=== PATIENT | female | born 1990 | race Caucasian/White ===

== ENCOUNTER → 2019-06-10 | Outpatient (CLI) | payer BC, SELFPAY ==
[2019-06-11 20:21] LABS: HPV APTIMA, High Risk Negative (Negative)
== END | disposition home or self-care (01) ==
LOC: LABSPEC 13:10
PROVIDERS: Referring Provider Obstetrics & Gynecology; Visit Provider Obstetrics & Gynecology
DX: Z12.4 Encounter for screening for malignant neoplasm of cervix (principal)
CPT/HCPCS: 87624; 88175; G0145

== ENCOUNTER → 2020-04-27 15:41 | Outpatient (CLI) | payer BC, SELFPAY ==
[2015-07-29 15:09] VITALS: BMI 31.1
[2020-04-27 16:59] LABS: Absolute Lymphocyte Count 2.61 X10^3/uL (0.83-4.51); Absolute Neutrophil Count 7.1 X10^3/uL (2.0-7.7); Basophil# 0.04 X10^3/uL; Basophil% 0.4 % (0-1); Eosinophils% 0.9 % (0-5); Hematocrit 39.2 % (37-47); Hemoglobin 13.4 g/dL (12.0-15.0); Lymphocyte # 2.61 X10^3/ul (4.0); Lymphocyte % 24.3 % (19-41); Mean Corp Hgb Conc 34.2 g/dL (32-36); Mean Corpuscular Hgb 31.1 pg (27.0-32.0); Mean Platelet Vol. 10.1 fl (6.2-12.0); Monocyte# 0.84 X10^3/uL; Monocyte% 7.8 % (0-10); NRBC Flagged by Analyzer 0 % (0-5); Neutrophil # 7.13 X10^3/uL (2.7-7.7); Neutrophil % 66.2 % (47-70); Platelet Count 332 K/mm3 (150-450); RBC Distribution Width CV 11.9 % (11.6-14.6); RBC Distribution Width SD 39.8 fl (35.1-43.9); Red Blood Count 4.31 M/mm3 (4.2-5.4); White Blood Count 10.8 K/mm3 (4.4-11.0)
[2020-04-27 17:02] LABS: Color, Urine Yellow (Yellow); Glucose, Dipstick 100 mg/dl (Normal); Ketone-Dipstick 15 mg/dl (Negative); Leukocyte Esterase-Dipstick 25 /ul (Negative); Nitrite-Dipstick Negative (Negative); Occult Blood-Urine Negative /ul (Negative); Protein-Dipstick 15 mg/dl (Negative); Urine Bilirubin Dipstick Negative (Negative); Urine Clarity Sl. Cloudy (Clear); Urine Urobilinogen 1 mg/dl (Normal)
[2020-04-27 17:25] LABS: Amphetamine Urine VISTA NEGATIVE (<1000 ng/mL); Barbiturate Urine VISTA NEGATIVE (< 200 ng/mL); Benzodiazepine Urine VISTA NEGATIVE (< 200 ng/mL); Cocaine Urine VISTA NEGATIVE (< 300 ng/mL); Ecstacy Urine VISTA NEGATIVE (< 500 ng/mL); Methadone Urine VISTA NEGATIVE (< 300 ng/mL); PCP Urine VISTA NEGATIVE (< 25 ng/mL); THC Urine VISTA NEGATIVE (< 50 ng/mL); Vista UDS pH Range 5
[2020-04-27 17:45] LABS: Thyroid Stim Hormone (TSH) 4.26 uIU/mL (0.358-3.74)
[2020-04-27 18:53] LABS: AST(SGOT) 12 U/L (15-37); Alanine Aminotransfer ALT/SGPT 18 U/L (13-56); Albumin, Serum 3.9 g/dL (3.2-5.0); Alkaline Phosphatase 56 U/L (45-117); Anion Gap 9 (5-15); BUN 13 mg/dL (7-18); BUN/Creat Ratio 20.1 RATIO (10-20); Chloride 104 mmol/L (98-107); Creatinine, Serum 0.65 mg/dL (0.55-1.02); EST Glomerular Filtration Rate 113 mL/min (>60); Est Glom Filt Rate - Afr Amer 137 mL/min (>60); Glucose 81 mg/dL (74-106); Potassium 3.2 mmol/L (3.5-5.1); Protein, Total 7.9 g/dL (6.4-8.2); Sodium Level 137 mmol/L (136-145)
[2020-04-27 19:04] LABS: Hemoglobin A1c 5.1 % (3.8-5.6)
[2020-04-28 09:42] LABS: HIV - WCH Non-Reactive (Nonreactive); Hepatitis B Surface Antigen Non-Reactive (Nonreactive); Hepatitis C Antibody Non-Reactive (Nonreactive); Rubella IgG Reactive (Nonreactive)
[2020-04-29 01:27] LABS: Prenatal RPR NONREACTIVE (NONREACTIVE)
[2020-04-30 03:07] LABS: Chlamydia By Nucleic Acid AMP Negative (Negative)
[2020-04-30 08:39] LABS: Gonococcus By Nucleic Acid AMP Negative (Negative)
== END ==
PROVIDERS: Visit Provider Obstetrics & Gynecology
DX: Z32.01 Encounter for pregnancy test, result positive (principal)
CPT/HCPCS: 36415; 80053; 80307; 81002; 83036; 84443; 85025; 86703; 86762; 86803; 87340; 87491; 87591

== ENCOUNTER → 2020-06-24 09:11 | Outpatient (CLI) | payer BC, SELFPAY ==
[2015-07-29 15:09] VITALS: BMI 31.1
[2020-06-24 11:28] LABS: Free T3 2.3 pg/mL (2.18-3.98); T4 Free Direct 1.27 ng/dL (0.76-1.46); Thyroid Stim Hormone (TSH) 1.63 uIU/mL (0.358-3.74)
== END ==
PROVIDERS: Visit Provider Student in an Organized Health Care Education/Training Program
DX: Z34.82 Encounter for supervision of other normal pregnancy, second trimester (principal); E03.9 Hypothyroidism, unspecified
CPT/HCPCS: 36415; 84439; 84443; 84481

== ENCOUNTER → 2020-08-03 10:48 | Outpatient (CLI) | payer BC, SELFPAY ==
[2015-07-29 15:09] VITALS: BMI 31.1
[2020-08-03 13:56] LABS: T4 Free Direct 1.13 ng/dL (0.76-1.46)
== END ==
PROVIDERS: Visit Provider Student in an Organized Health Care Education/Training Program
DX: Z34.82 Encounter for supervision of other normal pregnancy, second trimester (principal); E03.9 Hypothyroidism, unspecified
CPT/HCPCS: 36415; 84439; 84443

== ENCOUNTER → 2020-09-01 09:23 | Outpatient (CLI) | payer BC, SELFPAY ==
[2015-07-29 15:09] VITALS: BMI 31.1
[2020-09-01 10:24] LABS: Hematocrit 32.7 % (37-47); Hemoglobin 10.8 g/dL (12.0-15.0); Mean Corpuscular Hgb 31.1 pg (27.0-32.0); Mean Corpuscular Volume 94.2 fL (81-99); Mean Platelet Vol. 9.5 fl (6.2-12.0); Platelet Count 253 K/mm3 (150-450); RBC Distribution Width SD 44.8 fl (35.1-43.9); Red Blood Count 3.47 M/mm3 (4.2-5.4); White Blood Count 9.3 K/mm3 (4.4-11.0)
[2020-09-01 10:29] LABS: Glucose Challenge Gest 1H 50g 120 mg/dL (70-140)
[2020-09-01 15:03] LABS: Ferritin 6 ng/mL (8-252)
== END ==
PROVIDERS: Visit Provider Obstetrics & Gynecology
DX: Z34.82 Encounter for supervision of other normal pregnancy, second trimester (principal); D64.9 Anemia, unspecified
CPT/HCPCS: 36415; 82728; 82950; 85027

== ENCOUNTER → 2020-10-06 11:11 | Outpatient (CLI) | payer BC, SELFPAY ==
[2015-07-29 15:09] VITALS: BMI 31.1
== END ==
PROVIDERS: Visit Provider Obstetrics & Gynecology
DX: Z34.83 Encounter for supervision of other normal pregnancy, third trimester (principal)
CPT/HCPCS: 36415; 86850

== ENCOUNTER → 2020-11-19 | Outpatient (CLI) | payer BC, SELFPAY ==
[2015-07-29 15:09] VITALS: BMI 31.1
== END | disposition home or self-care (01) ==
LOC: LABSPEC 13:50
PROVIDERS: PCP Family Medicine; Visit Provider Obstetrics & Gynecology
DX: Z36.85 Encounter for antenatal screening for Streptococcus B (principal)
CPT/HCPCS: 87081

== ENCOUNTER 2020-12-19 23:05 | Inpatient (IN) | payer BC, SELFPAY ==
[2020-12-19] MEDS: Lactated Ringers 500 ML 999 ML IV (23:20)
[2020-12-19 23:33] VITALS: BP 128/67; PULSE 79; TEMP 37.1; O2SAT 98
[2020-12-19 23:33] LABS: Absolute Lymphocyte Count 2.46 X10^3/uL (0.83-4.51); Absolute Neutrophil Count 6.9 X10^3/uL (2.0-7.7); Basophil# 0.05 X10^3/uL; Basophil% 0.5 % (0-1); Eosinophil# 0.09 X10^3/uL; Eosinophils% 0.8 % (0-5); Hemoglobin 12.9 g/dL (12.0-15.0); Lymphocyte # 2.46 X10^3/ul (0.83-4.51); Lymphocyte % 22.8 % (19-41); Mean Corp Hgb Conc 33.9 g/dL (32-36); Mean Corpuscular Hgb 31.8 pg (27.0-32.0); Mean Corpuscular Volume 93.6 fL (81-99); Mean Platelet Vol. 9.8 fl (6.2-12.0); Monocyte# 0.88 X10^3/uL; Monocyte% 8.2 % (0-10); NRBC Flagged by Analyzer 0 % (0-5); Neutrophil # 6.88 X10^3/uL (2.7-7.7); Neutrophil % 63.7 % (47-70); Platelet Count 195 K/mm3 (150-450); RBC Distribution Width CV 13.3 % (11.6-14.6); RBC Distribution Width SD 45.4 fl (35.1-43.9); Red Blood Count 4.06 M/mm3 (4.2-5.4); White Blood Count 10.8 K/mm3 (4.4-11.0)
[2020-12-20] VITALS (19 sets, daily range): BP systolic 102–132; BP diastolic 55–70; PULSE 67–91; RESP 16–18; TEMP 36–36.9; O2SAT 97–98; BMI 37.0
[2020-12-20] MEDS: Oxytocin 30 units/NS 500 ml 30 UNITS/500 ML IV.SOLN 334 UNITS IV (00:07)
--- NOTE | 2020-12-20 00:18 | HP.PCM_ITS ---
History and Physical Date of Admission: 12/19/20 OG ANTEPARTUM RECORD - HISTORY AND PHYSICAL (12/20/2020) Name: PACO MEDINA History of this : This is a 30 year old [id number] presents at 40 wks + 3 days gestation in active labor. care was unremarkable except for a prior section. OB Physician: Ilana Esqueda MD 's Physician: UNDECIDED ...................................................................... : 1990 Age: 30 Address: [address] [place] [address] Phone: (H) [phone] (O) [phone] Insurance Carrier: [facility] [employer] (V[employer]D) [facility] [id number] Emergency Contact: JANE QUIROS - MOTHER [phone] ...................................................................... Final ALIVIA: 12/17/20 By Ultrasound: 10 weeks 4 days PARITY: (G-Total Pregnancies P-Fullterm,Premature,Induced AB,Spont AB, Ectopics, Multiple,Living) ALIVIA CONFIRMATION: By LMP: 03/12/20 Initial Exam: 12/17/20 By First Ultrasound Exam: 12/17/20 Final ALIVIA: 12/17/20 OB PROBLEM LIST: Hx- HSV, PPD, UTIs (distant past) Declines genetic testing. Plans second . ALLERGIC TO CLINDAMYCIN. Hx of PTD 35w Hypothyroidism- On Synthroid 100 mcg Marginal previa Rh Negative 28 wk RhoGAM ALLERGIES: Clindamycin Hives and/or rash clindamycin HCl Rash, trouble breathing NKDA MEDICATIONS: ferrous sulfate 325 mg (65 mg iron) tablet One pill by mouth twice a day levothyroxine 100 mcg tablet One pill by mouth once a day 28 mg-800 mcg tablet 1 PO QD Probiotic Plus and Cranberry 250 mg-30 mg-39.5 mg capsule 1 PO QD Vitamin C ER 500 mg tablet,extended release 1 PO BID Zofran 4 mg tablet As Directed 1 tab po TID PRN nausea and vomiting SOCIAL HISTORY: Smoking - Never Alcohol Use - None Diet - balanced Diet, caffeine < 2 drinks per day and water 3-4 Glasses Lifestyle - low stress lifestyle Exercise - minimal 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 Spouse-Sig Other Name - Harshil DomingoRory Jarad Spouse-Sig Other Occupation - [employer] Spouse-Sig Other Phone No - [phone] Children Name(s) - Donavon ()Nathaniel (16 SHM) PRIOR DELIVERY HISTORY DEL DATE GEST LAB WT LB WT OZ TYPE ANES LABOR TX Nov 27 39 17 9 0 C-Sec Epidural No 14 Jul 16 35 8 7 0 Vag Epidural No ANTEPARTUM FLOW CHART VISIT GE RTC FU F F WV U U DATE WK MD WKS HT PN HR M SS BP ED WT WV GL D EF ST __ ____ ___ __ __ ___ __ __ __ ___ __ __ __ ___ __ 01 Sep 39 SHM 1 39 V + + 120/68 sl 205 1+ ne 3 50 -3 25 Nov 38 SHM 1 39 V + + 130/70 1+ 206 tr - 18 Nov 37 SHM 1 38 V + + 120/60 1+ 204 1+ ne 3 50 -3 11 Nov 36 SHM 1 37 V + + 122/58 1+ 205 tr 2+ 06 Nov 36 SHM 1 36 V + + 100/62 0 204 - - 1 30 -3 Oct SHM 2 33 V + + 114/64 1+ 203 tr 1+ 06 Nov 13 SHM 2 31 V + + 110/58 1+ 199 - 1+ 23 Oct 12 SHM 3 28 + + 116/64 tr 195 tr 1+ September 06 SHM 4 23 ? + + 104/52 sl 187 tr - 20 Aug 03 CM 4 +U + 124/70 sl 181 - 2+ 10 Jun 27 JMW 5 14 + ? 122/64 0 177 - - 09 May 26 SHM 4 on US 124/78 0 174 tr - ANTEPARTUM NOTE(S): Dec 15 2020: Dec 08 2020: feeling well Dec 01 2020: Nov 24 2020: doing well Nov 19 2020: GBS today, LARC declined Nov 02 2020: see note Oct 19 2020: see note Oct 06 2020: Sep 01 2020: see note Aug 03 2020: Jun 23 2020: Nausea/Fatigue Improving, Declines AFP May 25 2020: fatigue and mild nausea persist COMPREHENSIVE ANTEPARTUM NOTE(S): Dec 15 2020: Paco is here for PNV at 39/5. Still expresses interest to go into labor naturally. Having ctx but nothing progressive. No LOF. Having good FM. Slight edema noted today. Usually gone by morning. Urine 1+/neg. LSS Dec 08 2020: Paco is feeling well, no complaints today. Sl edema noted. Reviewed FM,SROM, and labor. Declines cervix ck today. Not interested in elective induction at this point. Plans to just await labor. LMT Dec 01 2020: Paco is here for PNV. Feeling well but ready for to be over. Shares that she has ctx almost all the time. No LOF. Having good FM. Edema noted to be 1+ in hands and feet. Would like cervix check today. Urine 1+/neg. LSS Dec 01 2020: FM, labor, ROM precautions. Support offered. Pt anxious to know if in labor as she didn't realize she was in labor last time. Si/sx reviewed. Nov 24 2020: GBS negative. Feeling well. FM, labor reviewed. Edema improved with sleeping in recliner. LMT Nov 24 2020: GBS neg. Labor, FM precautions. Nov 19 2020: Paco is here for visit. She is doing well overall but anxious about delivery. Delivered last baby at 35 weeks. Feeling more irregular ctx's. Great FM and to call if decreased. Encouraged her to have evaluation if progressive, strong ctx's. GBS today, LARC declined. LMT Nov 19 2020: GBS obtained. Labor precautions reviewed. Pt feels this babygirl is big also. d/c progesterone capsules. Nov 02 2020: CEPHALIC, OP on exam. Recommend Spinning Babies, 3 sisters of balance. PTL precautions. Recommend Tdap vaccine. Discussed r/b Tdap vaccination. Nov 02 2020: Paco is here for visit. She has questions regarding Tdap vaccine. Reviewed with her at length and strongly recommend she consider proceeding with this. Offers protection until baby can get the DPT. FM, PTL reviewed. LMT Oct 19 2020: Paco is here for visit. She is doing well, no complaints. Occ ctx but nothing regular or progressive. Reviewed to call if regular, progressive ctx's. FM reviewed. Tdap encouraged. Tolerating Prometrium well. LMT Oct 19 2020: Reviewed [facility] visitor policy. Denies preeclampsia sx. Si/sx reviewed. Pt with b/l LE nonpitting edema Oct 06 2020: Paco is here for PNV. Had US today. Having good FM. Just trace of edema presentlly. Adds that she does swell a little more after being on feet all day. Has started to experience some numbing and tingling in hands. Discussed carpal tunnel and may need to use wrist support if becomes worse. Will need antibody screen and Rhogam today. Urine tr/1+. LSS Oct 06 2020: US EFW 66th%, LACI 20.8cm, previa resolved. Clear for . Discussed PPBC, pt considering male vs. female sterilization, r/b, recovery reviewed as well as reversible alternatives. PTL precautions. Sep 01 2020: Paco is here for visit. She relates that she is taking Vitamin C with [place] and wondering if that is ok? Advised some Vit C in PNV and would limit this to around 500 mg if able. Can discuss further with Dr SHM. Messer today and advised will need Antibody screen and Rhogam at next visit. LMT Sep 01 2020: US today with normal CL, placenta low lying 19mm from os. Will repeat US at next visit with growth scan. Pt tolerates P4 well. PTL, ROM, FM precautions.Request breast pump rx. Glucola, CBC today. Aug 24 2020: PHONE CALL TO PATIENT REGARDING PROGESTERONE: Patient reports delay in starting progesterone due to concerns about indication, risks and when preauthorization obtained was taken aback that 17OHP would be given in the home and was offered oral progesterone as an alternative (Timothy, 2009; Kiya 2019). She started this recently. We discussed indication for progesterone supplementation for PTL preventi Aug 03 2020: Paco reporting some edema in her feet and ankles. None noted this morning. Offered support stockings should she want these. She was concerned about not feeling FM as much at this stage of , as she did with previous pregnancies. Comprehensivre US today showing anterior placenta, marginal previa 0.5 cm from cervix, AGA, No anomalies. Glucola bottle and instructions given to be done nex Aug 03 2020: 20/4w. Hypothyroid - on synthroid. TFTs done today. Anatomy wnl. Marginal previa - precautions given. Monitor in 4w. Hx of PTD - considering IM progesterone, but is unsure. Would like to start CL screening. will do in 2w. F/u 4w. 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 w epidural, uncertain of ped care post disch and will breastfeed. Her , Harshil works at [employer]. They're pleased about the pg. Their first son, term, PCS at 9#. Their second son, at 35 w, at 7#. Each nursed 2 y. Paco is allergic to Clindamycin. She's a lifetime non smoker, non drinker May 25 2020: Relates constipation with Zofran and advised ok and recommend use of stool soft. Still with nausea/fatigue. Will discuss further with Dr HUA but some of this may just be normal for first trimester third . LMT May 25 2020: Reviewed labs with elevated TSH. Started Synthroid 100mcg daily. Rh negative. Will decrease Zofran at her discretion depending on nausea control in the next 1-2 weeks. REVIEW OF SYSTEMS: GENERAL - Denies fever, or chills SKIN - Denies rash, new skin lesions, or change in moles EYES - Denies blurred vision, or change in visual acuity EARS - Denies ear pain, or difficulty hearing NOSE - Denies nasal congestion, discharge, or bleeding MOUTH - Denies sore throat, or difficulty swallowing NECK - Denies pain or swelling RESPIRATORY - Denies shortness of breath, cough, wheezing CARDIOVASCULAR - Denies palpitations, chest pain, orthopnea, PND, peripheral edema, syncope or claudication GASTROINTESTINAL - Denies nausea, vomiting, diarrhea, constipation, Denies abdominal pain, melena and or bright red blood GENITOURINARY - Denies dysuria, frequency of urination, urgency, or hesitancy MUSCULOSKELETAL - Denies joint or muscle pain, or back pain NEUROLOGICAL - Denies localized numbness, weakness, or tingling PSYCHIATRIC - Denies depression, anxiety, substance abuse or suicide attempts ENDOCRINE - Denies heat or cold intolerance, weight loss or gain, increasing thirst HEMATO-IMMUNOLOGIC - Denies easy bruising, bleeding, oral ulcerations or recurrent infections GENETICS SCREENING: Age 35+ years: No Thalassemia: No Neural Tube Defect: No Down Syndrome: No SARAHI-SACHS: No Sickle Cell Disease: No Hemophilia: No Musc. Dystrophy: No Cystic Fibrosis: No-declines screening Malini Chorea: No Mental Retardation: No Fragile X: No Other genetic: No Other defects: No SABs/still births: No Drugs since LMP: Yes INFECTION HISTORY: High risk AIDS: No High risk Hepatitis: No Exposed to TB: No Exposed to Herpes: Yes Rash/viral illness since LMP: No History of STD: No MENSTRUAL HISTORY: *Menses Amount/Duration: 5 daysMenses Regularity: regularFrequency: monthlyMenarche (Age Onset): 12* PAST SUMMARY: PARITY: 1. Total Pregnancies............ 3 2. Full Term Pregnancies........ 1 3. Premature.................... 1 4. Abortions - Induced.......... 0 5. Abortions - Spontaneous...... 0 6. Ectopics..................... 0 7. Multiple Births.............. 0 8. Living Children.............. 2 PAST #1: Date of :.................. [birth year] Gestation Weeks:................ 39 Length of labor(hours):......... 17 Sex:............................ M Weight-lbs:............... 9 Weight-oz:................ 0 Type of Delivery:............... C-Sect Type of Anesthesia:............. Epidural Place of Delivery:.............. [facility] Treatment of Labor?:.... No Comment: FTD PAST #2: Date of :.................. 07/29/15 Gestation Weeks:................ 35 Length of labor(hours):......... 8 Sex:............................ M Weight-lbs:............... 7 Weight-oz:................ 0 Type of Delivery:............... Vag Type of Anesthesia:............. Epidural Place of Delivery:.............. [facility] Treatment of Labor?:.... No Comment: PPD PHYSICAL EXAMINATION General Appearence: 30 yo female in no acute distress Vital Signs: AF, VSS Heart: RRR without rubs or gallops Lungs: CTA x 2 Breasts: deferred Abdomen: gravid Pelvis: Cervix: Presentation: cephalic Station: Fetus: Size: AGA Movement: present Heart: present LAB TEST(S) ORDERED SINCE:03/22/20 12/19/2020 CBC W/DIFF, AUTOMATED 11/22/2020 RULE OUT BETA STREP (GRP. B) 10/06/2020 [id number] 09/01/2020 GLUCOSE CHALLENGE GEST 1H 50G 09/01/2020 FERRITIN 09/01/2020 CBC-COMPLETE BLOOD CNT NO DIFF 08/03/2020 THYROID STIM HORMONE (TSH) 08/03/2020 T4 FREE DIRECT 06/24/2020 THYROID STIM HORMONE (TSH) 06/24/2020 T4 FREE DIRECT 06/24/2020 FREE T3 04/30/2020 CHLAMYDIA/GC MELISSA APTIMA 04/28/2020 RUBELLA IGG 04/28/2020 RPR 04/28/2020 HIV - [facility] 04/28/2020 HEPATITIS C ANTIBODY 04/28/2020 HEPATITIS B SURFACE ANTIGEN 04/27/2020 URINE DRUG SCREEN (VISTA) 04/27/2020 URINALYSIS, ROUTINE (DIPSTICK) 04/27/2020 THYROID STIM HORMONE (TSH) 04/27/2020 T AND S-NO CHARGE W/PNP 04/27/2020 HEMOGLOBIN A1C 04/27/2020 COMPREHENSIVE METABOLIC PROFIL 04/27/2020 CBC W/DIFF, AUTOMATED == ==== Order Observation Description Value Ref_Range A* Site == ==== CBC W/DIFF, AUT NOTE EVANGELISTA CBC W/DIFF, AUT WBC 10.8 K/mm3 4.4-11.0 ML CBC W/DIFF, AUT RBC 4.06 M/mm3 4.2-5.4 L ML CBC W/DIFF, AUT HGB 12.9 g/dL 12.0-15.0 ML CBC W/DIFF, AUT HCT 38.0 37-47 ML CBC W/DIFF, AUT MCV 93.6 fL 81-99 ML CBC W/DIFF, AUT MCH 31.8 pg 27.0-32.0 ML CBC W/DIFF, AUT MCHC 33.9 g/dL 32-36 ML CBC W/DIFF, AUT RDW CV 13.3 11.6-14.6 ML CBC W/DIFF, AUT RDW SD 45.4 fl 35.1-43.9 H ML CBC W/DIFF, AUT PLT 195 K/mm3 150-450 ML CBC W/DIFF, AUT MPV 9.8 fl 6.2-12.0 ML CBC W/DIFF, AUT NEUT% 63.7 47-70 ML CBC W/DIFF, AUT LY% 22.8 19-41 ML CBC W/DIFF, AUT MONO% 8.2 0-10 ML CBC W/DIFF, AUT EO% 0.8 0-5 ML CBC W/DIFF, AUT BASO% 0.5 0-1 ML CBC W/DIFF, AUT IG% 4.000 0.0-0.9 H ML IG% - Immature Granulocytes (promyelocytes, myelocytes and metamyelocytes) > 1% indicates that a LEFT SHIFT is Present. CBC W/DIFF, AUT ABSOLUTE NEUT 6.9 X10 3/uL 2.0-7.7 ML CBC W/DIFF, AUT ABSOLUTE LYMPH 2.46 X10 3/uL 0.83-4.51 ML CBC W/DIFF, AUT NUCLEATED RBC 0 0-5 ML RULE OUT BETA S NOTE [facility]EL[facility]~[address] [place], [address]~ [id number] AB SCREEN GEL NEGATIVE ML FERRITIN NOTE EVANGELISTA FERRITIN FERRITIN 6 ng/mL 8-252 L ML GLUCOSE CHALLEN NOTE [facility]ANG[facility]ISTA GLUCOSE CHALLEN GLU GEST 50G 1H 120 mg/dL 70-140 ML CBC-COMPLETE BL NOTE EVANGELISTA CBC-COMPLETE BL WBC 9.3 K/mm3 4.4-11.0 ML CBC-COMPLETE BL RBC 3.47 M/mm3 4.2-5.4 L ML CBC-COMPLETE BL HGB 10.8 g/dL 12.0-15.0 L ML CBC-COMPLETE BL HCT 32.7 37-47 L ML CBC-COMPLETE BL MCV 94.2 fL 81-99 ML CBC-COMPLETE BL MCH 31.1 pg 27.0-32.0 ML CBC-COMPLETE BL MCHC 33.0 g/dL 32-36 ML CBC-COMPLETE BL RDW CV 13.0 11.6-14.6 ML CBC-COMPLETE BL RDW SD 44.8 fl 35.1-43.9 H ML CBC-COMPLETE BL PLT 253 K/mm3 150-450 ML CBC-COMPLETE BL MPV 9.5 fl 6.2-12.0 ML T4 FREE DIRECT NOTE EVANGELISTA T4 FREE DIRECT T4 FREE DIRECT 1.13 ng/dL 0.76-1.46 ML THYROID STIM HO NOTE EVANGELISTA THYROID STIM HO TSH 1.20 uIU/mL 0.358-3.74 ML T4 FREE DIRECT NOTE EVANGELISTA T4 FREE DIRECT T4 FREE DIRECT 1.27 ng/dL 0.76-1.46 ML THYROID STIM HO NOTE EVANGELISTA THYROID STIM HO TSH 1.63 uIU/mL 0.358-3.74 ML FREE T3 NOTE EVANGELISTA FREE T3 FREE T3 2.3 pg/mL 2.18-3.98 ML RPR NOTE EVANGELISTA RPR RPR NONREACTIVE NONREACTIVE ML HEPATITIS C ANT NOTE [facility]A HEPATITIS C ANT HEPATITIS C AB Non-Reactive Nonreactive ML Non Reactive: < 0.8 Equivocal: >/= 0.8 to < 1.0 Reactive: >/= 1.0 The CDC recommends that a reactive/equivocal HCV antibody result be followed up by the HCV Nucleic Acid Amplification test ([id number]) HEPATITIS B MARCO A NOTE EVANGELISTA HEPATITIS B MARCO A HEPB SURFACE AG Non-Reactive Nonreactive ML HIV - [facility] NOTE [facility]ANGELISTA HIV - [facility] HIV - [facility] Non-Reactive Nonreactive ML RUBELLA IGG NOTE EVANGELISTA RUBELLA IGG RUBELLA IGG Reactive Nonreactive ML Antibody Results Interpretation of Immune Status Non Reactive Presumed Non-Immune Equivocal Equivocal Reactive Presumed Immune HEMOGLOBIN A1C NOTE EVANGELISTA HEMOGLOBIN A1C HGB A1C 5.1 % 3.8-5.6 ML Normal < 5.7 % Prediabetic 5.7 - 6.4 % Diabetic >or= 6.5 % Please note range changes. THYROID STIM HO NOTE EVANGELISTA THYROID STIM HO TSH 4.26 uIU/mL 0.358-3.74 H ML COMPREHENSIVE M NOTE EVANGELISTA COMPREHENSIVE M GLU 81 mg/dL 74-106 ML Please note revised GLUCOSE reference range effective 05/18/2017. COMPREHENSIVE M BUN 13 mg/dL 7-18 ML COMPREHENSIVE M CREAT,SERUM 0.65 mg/dL 0.55-1.02 ML The validity of the calculated GFR AND GFRAA in patients over 70 years has not been determined. Clinical correlation is essential. COMPREHENSIVE M EST GFR 113 mL/min >60 ML Non- GFR Calc COMPREHENSIVE M EST GFR - AA 137 mL/min >60 ML GFR Calc COMPREHENSIVE M BUN/CRE 20.1 RATIO 10-20 H ML COMPREHENSIVE M T PROT 7.9 g/dL 6.4-8.2 ML COMPREHENSIVE M ALB 3.9 g/dL 3.2-5.0 ML COMPREHENSIVE M GLOB 4.0 g/dL 2.2-4.2 ML COMPREHENSIVE M A/G 1.0 RATIO 0.9-2.4 ML COMPREHENSIVE M CA 9.0 mg/dL 8.5-10.1 ML COMPREHENSIVE M AST 12 U/L 15-37 L ML COMPREHENSIVE M ALK P 56 U/L 45-117 ML COMPREHENSIVE M ALT 18 U/L 13-56 ML COMPREHENSIVE M T BILI 0.40 mg/dL 0.20-1.00 ML For patients on eltrombopag therapy, use of Dimension [place] TBIL is not recommended. COMPREHENSIVE M NA 137 mmol/L 136-145 ML COMPREHENSIVE M K 3.2 mmol/L 3.5-5.1 L ML COMPREHENSIVE M CL 104 mmol/L 98-107 ML COMPREHENSIVE M CO2 24.0 mmol/L 21.0-32.0 ML COMPREHENSIVE M GAP 9 5-15 ML Reason for Type AND Screen/Red Cells: Surgery? [facility]~[address] [place], [address]~ T AND BLOOD TYPE GEL O NEGATIVE N ML T AND AB SCREEN GEL NEGATIVE N ML URINE DRUG SCRE NOTE EVANGELISTA URINE DRUG SCRE TO BE CONFIRMED ML CONFIRMATORY TESTING FOR ALL POSITIVE URINE DRUG SCREEN RESULTS WILL ONLY BE SENT OUT UPON PHYSICIAN ORDER. VISTA Urine Drug Screen methods provide only preliminary analytical test results. A more specific alternate chemical method must be used in order to obtain a confirmed analytical result. Gas chromatography/mass spectrometery (GC/MS) is the preferred confirmatory method. Clinical consideration and professional judgement should be applied to any drug of abuse test result, particularly when preliminary positive results are used. URINE TCA TESTING MUST BE ORDERED SEPARATELY. USE TEST MNEMONIC: UTCA URINE DRUG SCRE VISTA UDS PH 5 ML URINE DRUG SCRE AMPHETAMINES NEGATIVE <1000 ng/mL ML URINE DRUG SCRE BARBITIURATES NEGATIVE < 200 ng/mL ML URINE DRUG SCRE BENZODIAZIPINE NEGATIVE < 200 ng/mL ML URINE DRUG SCRE COCAINE NEGATIVE < 300 ng/mL ML URINE DRUG SCRE ECSTACY NEGATIVE < 500 ng/mL ML URINE DRUG SCRE METHADONE NEGATIVE < 300 ng/mL ML URINE DRUG SCRE OPIATES NEGATIVE < 300 ng/mL ML URINE DRUG SCRE PCP NEGATIVE < 25 ng/mL ML URINE DRUG SCRE THC NEGATIVE < 50 ng/mL ML URINALYSIS, ROU NOTE EVANGELISTA URINALYSIS, ROU COLOR Yellow Yellow ML URINALYSIS, ROU CLARITY Sl. Cloudy Clear ML URINALYSIS, ROU GLUCOSE, UR 100 mg/dl Normal H ML URINALYSIS, ROU BILIRUBIN URINE Negative mg/dL Negative ML URINALYSIS, ROU KETONE UR 15 mg/dl Negative H ML URINALYSIS, ROU SP.GR. DIPSTX 1.030 1.002-1.030 ML URINALYSIS, ROU PH UR 5.0 5.0 - 8.0 ML URINALYSIS, ROU PROT DIPSTX 15 mg/dl Negative H ML URINALYSIS, ROU UROBILI 1 mg/dl Normal H ML URINALYSIS, ROU NITRITE UR Negative Negative ML URINALYSIS, ROU OCCULT BLOOD-UR Negative /ul Negative ML URINALYSIS, ROU LEUK ESTERASE 25 /ul Negative H ML CBC W/DIFF, AUT NOTE EVANGELISTA CBC W/DIFF, AUT WBC 10.8 K/mm3 4.4-11.0 ML CBC W/DIFF, AUT RBC 4.31 M/mm3 4.2-5.4 ML CBC W/DIFF, AUT HGB 13.4 g/dL 12.0-15.0 ML CBC W/DIFF, AUT HCT 39.2 % 37-47 ML CBC W/DIFF, AUT MCV 91.0 fL 81-99 ML CBC W/DIFF, AUT MCH 31.1 pg 27.0-32.0 ML CBC W/DIFF, AUT MCHC 34.2 g/dL 32-36 ML CBC W/DIFF, AUT RDW CV 11.9 % 11.6-14.6 ML CBC W/DIFF, AUT RDW SD 39.8 fl 35.1-43.9 ML CBC W/DIFF, AUT PLT 332 K/mm3 150-450 ML CBC W/DIFF, AUT MPV 10.1 fl 6.2-12.0 ML CBC W/DIFF, AUT NEUT% 66.2 % 47-70 ML CBC W/DIFF, AUT LY% 24.3 % 19-41 ML CBC W/DIFF, AUT MONO% 7.8 % 0-10 ML CBC W/DIFF, AUT EO% 0.9 % 0-5 ML CBC W/DIFF, AUT BASO% 0.4 % 0-1 ML CBC W/DIFF, AUT IM GRAN % 0.400 % 0.0-0.9 ML IG% - Immature Granulocytes (promyelocytes, myelocytes and metamyelocytes) > 1% indicates that a LEFT SHIFT is Present. CBC W/DIFF, AUT ABSOLUTE NEUT 7.1 X10 3/uL 2.0-7.7 ML CBC W/DIFF, AUT ABSOLUTE LYMPH 2.61 X10 3/uL 0.83-4.51 ML CBC W/DIFF, AUT NRBC, FLAGGED 0 % 0-5 ML CHLAMYDIA/GC NA NOTE EVANGELISTA CHLAMYDIA/GC NA CHLAMY,NUC ACID Negative Negative LC CHLAMYDIA/GC NA GC BY NUC ACID Negative Negative LC Performed at: = - [facility] [address], [place] [id number] Snath Handle Assembler: Sade Blunt MD, Phone: [phone] Group B Beta Streptococcus is not isolated. == ==== Impression /Plan: 40 wks + 3 days intrauterine in active labor and prior section. Preparations in progress for delivery.
--- NOTE | 2020-12-20 00:19 | EX.PCM.OBRPT ---
Vaginal Delivery Maternal Presentation Maternal Presentation: Active Labor and Spontaneous Rupture of Membranes Maternal Presentation: 40-week 2-day gestation presents in active labor with rupture of membranes. Prior section. Operative Information Date of Procedure: 12/19/20 Pre-Operative Diagnosis: IUP, Prior Section Post-Operative Diagnosis: IUP, Prior Section Surgery / Procedure Performed: Spontaneous Vaginal Delivery and Type of Anesthesia: Local with 1% Lidocaine Estimated Blood Loss: 250 cc Fluids Replaced: Crystalloid Findings Description of Procedure: Spontaneous vaginal delivery of a viable female infant with Apgars of 9/10 from an occiput anterior presentation with clear amniotic fluid and normal three-vessel placenta. Cord around the neck and shoulders x2 tight. No episiotomy. First-degree midline laceration repaired with 3-0 Vicryl suture. Sponges okay. Delivery physician: Michael Werner MD. Presentation: Vertex Amniotic Membrane Rupture Type: Spontaneous Amniotic Fluid Description: Clear Placental Delivery Description: Spontaneous Placenta Disposition: [facility] Cord Vessel Description: 3 Vessels Cord Entanglement: Around neck x 1, tight and - (Around shoulder tight x1) Cord Gases: ABG and VBG Infant A Gender: Female (1 minute): 9 (5 minute): 10 Post Vaginal Delivery Medications Given After Delivery: IV Pitocin Episiotomy Description: None Laceration: Midline and 1st degree Complication Complications: None
--- NOTE | 2020-12-20 00:25 | PCM.DC ---
Discharge Instructions Diet Discharge Diet: No restrictions Activity Discharge Activity: May Drive (In 1 to 2 days if not taking narcotic pain medication), May Shower and May Take a Tub Bath May resume sexual activity in: 4-6 weeks Additional Activity Instructions:: Nothing in the vagina for 4-6 weeks. You may return to work/school in 6 weeks. Dressing / Incision Call your doctor if you observe: Fever of 101 or Higher, Inability to urinate, Inability to have a bowel movement and Using more than 1 pad per hour Follow Up Care When: Call [phone] to make an appointment with your doctor in 6 weeks. Test Results: Test results from this visit will be discussed in further detail at your follow-up appointment, if applicable. Discharge Plan Admission Admit Date/Time: 12/19/20 23:05 Primary Reason for Your Visit: Vaginal after Attending Provider: Michael Werner Primary Care Provider: Meng Tabor Discharge Orders/Prescriptions Prescriptions: No Action Prenatabs FA 1 TABLET tablet 1 tab PO DAILY RF: 0 ferrous sulfate 325 mg (65 mg iron) tablet 325 mg PO DAILY RF: 0 levothyroxine 25 MCG tablet 125 mcg PO DAILY RF: 0 Referrals / Follow Up: Meng Tabor MD [Primary Care Provider] - Disposition Disposition (needs filled in before D/C Order can be placed): Home, Self Care
[2020-12-20] MEDS: Acetaminophen 500 MG Tablet 1000 MG PO (02:13)
[2020-12-20] MEDS: Benzocaine/Lanolin/Aloe Vera 1 SPRAY EACH TOPICAL (02:59)
--- NOTE | 2020-12-20 06:21 | NURSING ---
@ 0037 pitocin rate changed to 167 ml/hr for remainder of bag infusion.
[2020-12-20] MEDS: Ibuprofen 600 MG Tablet PO (09:29)
[2020-12-21 00:50] VITALS: BP 114/57; PULSE 91; RESP 16; TEMP 36.6
[2020-12-21] MEDS: Ibuprofen 600 MG Tablet PO (05:05)
[2020-12-21 07:50] VITALS: BP 104/60; PULSE 71; RESP 16; TEMP 35.9
--- NOTE | 2020-12-21 08:28 | PCM.PN.OB ---
Subjective Subjective Patient without complaints. Tolerating diet and breast-feeding going well. Minimal vaginal bleeding reported. Wants to go home today. Objective Data Objective Data Vital Signs: Vital Signs Temp Pulse Resp BP Pulse Ox 96.7 F L 71 16 104/60 97 12/21/20 07:50 12/21/20 07:50 12/21/20 07:50 12/21/20 07:50 12/20/20 09:28 Oxygen Delivery Method Room Air Weight: 209 lb Body Mass Index (BMI) 37.0 Intake & Output: Intake and Output for Last 24 Hours 12/19/20 12/20/20 12/21/20 23:59 23:59 23:59 Intake Total 500 / 500 500 / 500 Output Total 1300 / 1300 Balance 500 / 500 -800 / -800 Lab / Micro Data Result Diagrams: 12/19/20 23:25 Micro: Microbiology 12/19/20 23:25 Nasal Secretion SARS-CoV-2 Antigen (Rapid) - Final Assessment & Plan (1) Vaginal delivery: PLAN: Doing well day #2 status post routine spontaneous vaginal delivery. Will discharge to home with routine instructions.
--- NOTE | 2020-12-21 11:00 | CASEMGMT ---
Social Work Brief Assessment Labor and Delivery Unit Refer documentation below for further details. Date of Referral/Notification: 12/20/20 Time of Referral: 06:33 Referred By: Michael Werner Reason for Referral: MOB with history of Post- Depression Date of Intervention: 12/21/20 Time of Intervention: 11:00a Informant: Medical record and mother of baby (MOB) Assessment: Reviewed referral with nursing. 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 Ben Ackerman is MOB and FOB?s 3rd child. Met with MOB in room. MOB sitting up in bed holding baby Ben mckay. Introduced role and reason for referral. MOB openly discussed history of PPD and reports did not know exactly what she was going through at the time. MOB states had good support from family and friends after opening up about feelings. MOB reports with 2nd child was more aware and was proactive with getting script for medication-Zoloft. MOB reports not currently on medication for mental health. MOB reports had a good and is more aware of signs/symptoms of PPD. Educational resources given. MOB denies any concerns or need for resources. Plan: Home with resources provided No further needs requested or indicated. Handy Oconnor, [employer] ENG[employer], CONTROL SPECIALIST
== END 2020-12-21 14:05 | disposition home or self-care (01) | DRG 807 ==
LOC: WPOUT 23:07 → WP 23:07
PROVIDERS: Admitting Provider Obstetrics & Gynecology; PCP Family Medicine; Visit Provider Obstetrics & Gynecology
DX: O34.219 Maternal care for unspecified type scar from previous cesarean delivery (principal); Z37.0 Single live birth; Z3A.40 40 weeks gestation of pregnancy; E03.9 Hypothyroidism, unspecified; O99.284 Endocrine, nutritional and metabolic diseases complicating childbirth; Z79.890 Hormone replacement therapy; O69.1XX0 Labor and delivery complicated by cord around neck, with compression, not applicable or unspecified; O70.0 First degree perineal laceration during delivery
CPT/HCPCS: 59050; 85025; 85461; 86850; 86900; 86901; 87426; 90384; 99218; J7120; G0378; J2790

== ENCOUNTER → 2021-02-01 11:11 | Outpatient (CLI) | payer BC, SELFPAY ==
[2021-02-01 14:24] LABS: Free T3 2.5 pg/mL (2.18-3.98); T4 Free Direct 1.41 ng/dL (0.76-1.46); Thyroid Stim Hormone (TSH) 0.06 uIU/mL (0.358-3.74)
== END ==
PROVIDERS: PCP Family Medicine; Visit Provider Obstetrics & Gynecology
DX: E03.9 Hypothyroidism, unspecified (principal)
CPT/HCPCS: 36415; 84439; 84443; 84481